=== PATIENT | female | born 1980 | race Caucasian/White ===

== ENCOUNTER 2019-11-16 09:10 | Inpatient (IN) | payer BC, SELFPAY ==
[~2019-11-16] VITALS: Ht 160 cm; Wt 40.5 kg
[~2019-11-16 09:10] MED LIST: AZIT-12 PO
[2019-11-16] MEDS ORDERED: NS 500 ML IV ONE (09:30)
[2019-11-16 09:40] LABS: VENOUS BASE EXCESS 0.3 (-2.0-2.0); VENOUS HCO3 26.5 MEQ/L (23.0-27.0); VENOUS O2 SATURATION 80.8 % (60.0-80.0); VENOUS PARTIAL PRESSURE CO2 48.7 mmHg (38.0-50.0); VENOUS PARTIAL PRESSURE O2 50.7 mmHg (30.0-50.0); VENOUS PH 7.353 UNITS (7.330-7.430); VENOUS STANDARD HCO3 24.4 MEQ/L
[2019-11-16 09:46] LABS: BASO % 0.6 % (0.0-1.0); EOS % 0.8 % (0.0-3.0); HEMATOCRIT 36.1 % (36.0-47.0); HEMOGLOBIN 13.1 g/dl (12.0-15.5); LYMPH # 1.5 10^3/uL (1.5-5.0); LYMPH % 31.6 % (24.0-44.0); MEAN CORPUSCULAR HEMOGLOBIN 32.5 pg (27.0-33.0); MEAN CORPUSCULAR HGB CONC 36.3 g/dl (32.0-36.5); MEAN CORPUSCULAR VOLUME 89.6 fl (80.0-96.0); MONO # 0.3 10^3/uL (0.0-0.8); MONO % 5.7 % (0.0-5.0); NEUTROPHILS # 2.9 10^3/uL (1.5-8.5); NEUTROPHILS % 60.9 % (36.0-66.0); PLATELET COUNT, AUTOMATED 258 10^3/uL (150-450); RED BLOOD COUNT 4.03 10^6/uL (4.00-5.40); WHITE BLOOD COUNT 4.8 10^3/uL (4.0-10.0)
[2019-11-16 09:57] LABS: INR 0.87; PROTHROMBIN TIME 11.5 SECONDS (11.8-14.0)
[2019-11-16 10:21] LABS: FREE T4 1.13 NG/DL (0.76-1.46); MAGNESIUM LEVEL 1.3 MG/DL (1.8-2.4); THYROID STIMULATING HORMONE 1.88 uIU/ML (0.358-3.740)
--- NOTE | 2019-11-16 10:27 | REP ---
Portable chest x-ray: Single view. History: Syncope. No comparison study. Findings: The lungs are symmetrically aerated and clear. The pleural angles are sharp. Heart is not enlarged. Pulmonary vasculature is not increased. EKG monitoring electrodes overlie the chest. No acute bony abnormalities seen. There is some diffuse osteopenia. The patient is extremely thin. Impression: No active cardiopulmonary disease. Diffuse osteopenia. The patient is extremely thin. Electronically Signed by Luis Fernando Murcia MD 11/16/2019 10:19 A
[2019-11-16] MEDS ORDERED: MAG SULF 1GM/100ML (MAG RUN) 1 GM in IV 1 EA IV ONE (10:30)
[2019-11-16 10:35] LABS: INFLUENZA A AMPLIFICATION POSITIVE (NEGATIVE); INFLUENZA B AMPLIFICATION NEGATIVE (NEGATIVE)
[2019-11-16] MEDS ORDERED: NS 250 ML IV ONE (10:45)
[2019-11-16] MEDS ORDERED: B-12100010 PO (11:00)
[2019-11-16] MEDS ORDERED: FLINCHW14 PO (11:00)
[2019-11-16] MEDS ORDERED: AZIT-10 PO (11:00)
[2019-11-16 13:57] VITALS: BP 85/57
[2019-11-16] MEDS ORDERED: KCL 40MEQ in NS 1000ML 1,000 ML IV SCH (14:00)
[2019-11-16] MEDS: KCL 10MEQ/100ML SWI (KRUN) 10 MEQ in IV 1 EA IV SCH ×2 (14:15→15:00)
[2019-11-16 14:51] LABS: CALCIUM LEVEL 8.9 MG/DL (8.5-10.1); CREATININE FOR GFR 2.04 MG/DL (0.55-1.30); MAGNESIUM LEVEL 2.2 MG/DL (1.8-2.4); POTASSIUM SERUM 2.9 MEQ/L (3.5-5.1)
[2019-11-16] MEDS: OSELTAMIVIR PHOSPHATE 30MG CAPSULE PO SCH (15:44)
[2019-11-16] MEDS: POTASSIUM CHLORIDE 10 MEQ SR TABLET PO SCH ×2 (15:45→20:29)
[2019-11-16 15:47] VITALS: BP 97/60
--- NOTE | 2019-11-16 15:59 | HPEPDOC ---
[facility] Medical History & Physical Date of Admission Nov 16, 2019 Date of Service: Nov 16, 2019 Attending Physician: SOWMYA BOOKER DO History and Physical CHIEF COMPLAINT: Nausea, vomiting, and flulike symptoms HISTORY OF PRESENT ILLNESS: Patient is a 39-year-old female with no significant past medical history who presents to the emergency department with complaint of 4 day history of decreased appetite, nausea, vomiting, and flulike symptoms. She states that she recently flew back to [place] from [place] on Thursday. She reports feeling ill on Thursday. She complains of feeling dehydrated, having a decreased appetite, nausea, vomiting. 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 Patient is notably thin and malnourished. She reports significant weight loss recently, however she denies trying to lose any additional weight. She states she has poor eating habits because she is "never hungry" but she denies thoughts of anorexia or bulimia. She states that she does not know her weight and she never checks it, but does state that she has lost weight. She reports that she would be interested in gaining more weight. She states that she is unhappy that she has lost even more rarely recently with current illness. She denies concerns with body image. In the emergency department on [id number] test, patient was found to have a sodium of 111 and therefore patient admitted to the ICU for close monitoring of sodium correction. Patient was found to have several electrolyte abnormalities including hypokalemia and hypomagnesemia in addition to hyponatremia. Of note patient was also found to be influenza A positive. PAST MEDICAL HISTORY: 1. Denies PAST SURGICAL HISTORY: 1. Denies SOCIAL HISTORY: Patient is unmarried and lives at home alone. 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 he plans to move to [place] at the end of the month. In [place] she plans to do [email or web address] work. Patient is a former smoker with a 8 pack year history. She reports smoking approximately half pack per day from age 21- 37. She denies alcohol use or illicit drug use. FAMILY HISTORY: She denies medical problems within her family. Patient has a twin brother who is healthy. ALLERGIES: Please see below. REVIEW OF SYSTEMS: CONSTITUTIONAL: Patient with generalized weakness. HEENT: Denies headache, dizziness. Patient does report nasal congestion and cough. CARDIOVASCULAR: Denies chest pain or palpitations. RESPIRATORY: Denies shortness of breath. GASTROINTESTINAL: Denies abdominal pain. Reports decreased appetite, change taste of food, nausea, vomiting, diarrhea. GENITOURINARY: Does denies dysuria. SKIN: Denies rash. PSYCHIATRIC: Reports she feels that she has lost too much weight. She denies anorexic or bulimic tendencies. Denies suicide ideation HOME MEDICATIONS: Multivitamin, B12 PHYSICAL EXAMINATION: VITAL SIGNS: Please see below. GENERAL: Alert and oriented, in no acute distress, appears thin and malnourished with obvious temporal wasting HENT: Normocephalic, atraumatic EYES: Pupils equal round and reactive to light, no scleral icterus CARDIOVASCULAR: Regular rate and rhythm, no lower extremity edema RESPIRATORY: Clear to auscultation bilaterally ABDOMINAL: Soft, thin, nontender, nondistended, positive bowel sounds EXTREMITIES: Normal range of motion and strength of all 4 extremities NEUROLOGICAL: Alert and oriented 3 without focal deficits noted SKIN: Warm and dry LABORATORY DATA: See below. IMAGING: Chest x-ray independently visualized, in no acute abnormalities identified. Report reviewed, per radiology diffuse osteopenia noted. MICROBIOLOGY: Please see below. ASSESSMENT/PLAN: #Influenza A -Will start Tamiflu 30 mg daily which has been renally adjusted - Isolation precautions - Tylenol when necessary, Zofran for nausea - Supportive care #Acute kidney injury - Secondary to prerenal etiology/dehydration - IV fluid hydration, however will be limited by sodium correction - Avoid nephrotoxic agents - Monitor urine output #Hypovolemic hyponatremia -Likely secondary to poor oral intake, dehydration - Will check serum and urine osmolality, and urine electrolytes to confirm. Will rule out other causes by checking lipid -Will monitor serial sodiums every 6 hours to avoid overcorrection. Anticipate 6-8 mEq of sodium improvement in the first 24 hours - Given severity of hyponatremia, will monitor in the ICU #Hypokalemia, hypomagnesemia - Replete with goal K> 4.0, Mag > 2.0 #Severe protein calorie malnutrition - Likely a result of long-standing history of poor by mouth intake - Will encourage by mouth intake, calorie count - Given obvious long-standing malnutrition, patient at high risk for refeeding syndrome. Monitor electrolytes including phosphorus closely. - Daily weights - Lining Presser consulted Diet: Regular diet with calorie counts. Extensive refeeding syndrome, we'll need to limit caloric intake to allow safe refeeding DVT prophylaxis: Heparin subcutaneous GI prophylaxis: Not indicated at this time O2: Room air L/T/D: None Drips: No fluids pending repeat labs to avoid overcorrection. Fluids are started in will add KCl to avoid hypokalemia CODE STATUS: Full code. Disposition: Monitor in the ICU given severe hyponatremia. Will rehydrate gently to avoid overcorrection of sodium. Aggressive repletion of potassium and magnesium. Billin Vital Signs Vital Signs Date Time Temp Pulse Resp B/P (MAP) Pulse Ox O2 Delivery O2 Flow Rate FiO2 11/16/19 13:44 98.7 11/16/19 13:30 80 16 90/61 (71) 99 Room Air Laboratory Data Labs 24H Laboratory Tests 2 11/16/19 09:30: POC Glucose (Misc Panel) 113H, POC Sodium (Misc Panel) 111*L, POC Potassium (Misc Panel) 3.0L, POC Chloride (Misc Panel) 73L, POC Total CO2 (Misc Panel) 29.0H, POC Blood Urea Nitrogen (Misc Panel 58H, POC Ionized Calcium (Misc Panel) 4.6, POC Creatinine (Misc Panel) 2.8H, POC Hematocrit (Misc Panel) 40.0 11/16/19 09:31: Immature Granulocyte % (Auto) 0.4, Neutrophils (%) (Auto) 60.9, Lymphocytes (%) (Auto) 31.6, Monocytes (%) (Auto) 5.7H, Eosinophils (%) (Auto) 0.8, Basophils (%) (Auto) 0.6, Neutrophils # (Auto) 2.9, Lymphocytes # (Auto) 1.5, Monocytes # (Auto) 0.3, Eosinophils # (Auto) 0.0, Basophils # (Auto) 0.0, Nucleated Red Blood Cells % (auto) 0.0, Prothrombin Time 11.5L, Prothromb Time International Ratio 0.87, Activated Partial Thromboplast Time 34.0, Blood Gas Bicarbonate Standard 24.4, Venous Blood pH 7.353, Venous Blood Partial Pressure CO2 48.7, Venous Blood Partial Pressure O2 50.7H, Venous Blood Total Carbon Dioxide 28.0, Venous Blood HCO3 26.5, Venous Blood Oxygen Saturation 80.8H, Venous Blood Base Excess 0.3, Lactic Acid Level 4.1*H, Magnesium Level 1.3L, Thyroid Stimulating Hormone (TSH) 1.880, Free Thyroxine 1.13 11/16/19 09:32: POC Beta HCG, Quantitative < 5.0 11/16/19 09:33: Bedside Glucose (Misc Panel) 123H 11/16/19 09:48: Influenza Type A (RT-PCR) POSITIVEH, Influenza Type B (RT-PCR) NEGATIVE 11/16/19 10:02: Prealbumin 17.5L 11/16/19 11:31: Urine Random Osmolality 356L 11/16/19 14:04: Anion Gap 9, Glomerular Filtration Rate 29.0L, Osmolality 249L, Lactic Acid Level 1.5, Calcium Level 8.9, Magnesium Level 2.2 CBC/BMP Laboratory Tests 11/16/19 09:31 11/16/19 14:04 Microbiology Microbiology 11/16/19 Blood Culture, Received Pending 11/16/19 Blood Culture, Received Pending Home Medications Scheduled Azithromycin (Azithromycin) 250 Mg Tablet, 250 MG PO DAILY filled 11/12/19 for 5 days Cyanocobalamin (Vitamin B-12) (Vitamin B-12) 1,000 Mcg Capsule, 1,000 MCG PO DAILY Pediatric Multivitamin No.42 (Flintstones) 1 Each Tab.chew, 1 TAB PO DAILY Allergies Coded Allergies: No Known Allergies (Unverified , 03/10/18) A-FIB/CHADSVASC A-FIB History Current/History of A-Fib/PAF?: No Current PO Anticoag Therapy: No Age/Risk Factor Scoring CHADSVASC: CHADSVASC Response (Comments) Value Age Risk Factor Age < 65 years old 0 Gender Risk Factor Female 1 Hx of CHF No 0 Hx of HTN No 0 Hx of Stroke/TIA/or VTE No 0 Hx of Diabetes No 0 Hx of Vascular Disease No 0 Total 1 Treatment Treatment ordered: NONE Reason Anticoagulant not given: Not indicated/[id number] SOWMYA BOOKER DO Nov 16, 2019 15:59
[2019-11-16] MEDS ORDERED: ONDANSETRON 4MG/2ML VIAL (J2405) IV PRN (16:00)
[2019-11-16] MEDS ORDERED: ACETAMINOPHEN TAB 650MG DOSE (2X325MG) PO PRN (16:00)
[2019-11-16] MEDS ORDERED: POTASSIUM CHLORIDE 10 MEQ SR TABLET PO ONE (17:30)
[2019-11-16] MEDS: NEUTRA-PHOS 1.5 GM PACKET PO SCH ×2 (18:20→20:29)
[2019-11-16 18:22] LABS: CALCIUM LEVEL 8.5 MG/DL (8.5-10.1); GLOMERULAR FILTRATION RATE 29.7 (>60); POTASSIUM SERUM 2.9 MEQ/L (3.5-5.1)
[2019-11-16 20:00] VITALS: BP 88/56
[2019-11-16] MEDS ORDERED: FAMOTIDINE 20 MG TAB PO ONE (20:00)
[2019-11-16] MEDS: HEPARIN SOD (PORCINE) 5000 UNITS/ML VIAL (J1644 PER 1000UNITS) SQ SCH (20:28)
[2019-11-16 20:36] LABS: CALCIUM LEVEL 8.3 MG/DL (8.5-10.1); CREATININE FOR GFR 1.85 MG/DL (0.55-1.30); GLOMERULAR FILTRATION RATE 32.5 (>60); MAGNESIUM LEVEL 1.6 MG/DL (1.8-2.4)
[2019-11-16] MEDS ORDERED: POTASSIUM CHLORIDE INJ 40 MEQ in D5W 1,000 ML IV SCH (21:30)
[2019-11-16] MEDS ORDERED: PANTOPRAZOLE 40MG TAB (PROTONIX) PO ONE (22:15)
[2019-11-16] MEDS ORDERED: CALCIUM CARBONATE 500 MG CHEW U/D PO ONE (22:15)
[2019-11-16] MEDS ORDERED: KCL 20MEQ IN D5W 1000ML 1,000 ML IV SCH (22:15)
[2019-11-17] VITALS (8 sets, daily range): BP systolic 73–86; BP diastolic 50–58
[2019-11-17 02:45] LABS: CREATININE FOR GFR 1.48 MG/DL (0.55-1.30); MAGNESIUM LEVEL 1.4 MG/DL (1.8-2.4); POTASSIUM SERUM 4.9 MEQ/L (3.5-5.1)
[2019-11-17] MEDS ORDERED: MAG SULF 1GM/100ML (MAG RUN) 1 GM in IV 1 EA IV ONE (03:30)
[2019-11-17] MEDS ORDERED: D5W 1,000 ML IV SCH (03:30)
--- NOTE | 2019-11-17 05:40 | ECGEPIP ---
[facility] - ED Test Date: 2019-11-16 Pat Name: JAY GOLDSTEIN Department: Room: - Gender: Female Electrical And Electronic Assembler: JNancy : 1980 Requested By: RALPH Herring Order Number: [id number] Reading MD: Aaron Barrera Measurements Intervals Marana Rate: 77 P: 80 NE: 140 QRS: 131 QRSD: 97 T: 69 QT: 376 QTc: 428 Interpretive Statements SINUS RHYTHM POSSIBLE RIGHT ATRIAL ENLARGEMENT MODERATE INTRAVENTRICULAR CONDUCTION DELAY NO PRIORS FOR COMPARISON Electronically Signed on 11-17-2019 5:40:27 EST by Aaron Barrera
[2019-11-17 06:32] LABS: HEMATOCRIT 25.9 % (36.0-47.0); MEAN CORPUSCULAR HEMOGLOBIN 32.7 pg (27.0-33.0); MEAN CORPUSCULAR HGB CONC 35.9 g/dl (32.0-36.5); MEAN CORPUSCULAR VOLUME 91.2 fl (80.0-96.0); PLATELET COUNT, AUTOMATED 184 10^3/uL (150-450); RED BLOOD COUNT 2.84 10^6/uL (4.00-5.40); WHITE BLOOD COUNT 3.5 10^3/uL (4.0-10.0)
[2019-11-17 06:36] LABS: HEMOGLOBIN 9.3 g/dl (12.0-15.5)
[2019-11-17 07:00] LABS: CREATININE FOR GFR 1.47 MG/DL (0.55-1.30); GLOMERULAR FILTRATION RATE 42.3 (>60); MAGNESIUM LEVEL 1.9 MG/DL (1.8-2.4); POTASSIUM SERUM 4.6 MEQ/L (3.5-5.1)
[2019-11-17 07:27] LABS: ALBUMIN 2.1 GM/DL (3.2-5.2); ALT/SGPT 54 U/L (12-78); BLOOD UREA NITROGEN 35 MG/DL (7-18); CALCIUM LEVEL 7.5 MG/DL (8.5-10.1); CARBON DIOXIDE LEVEL 22 MEQ/L (21-32); CHLORIDE LEVEL 91 MEQ/L (98-107); CHOLESTEROL LEVEL 122 MG/DL (< 200); CHOLESTEROL LEVEL 122 MG/DL (<200); CHOLESTEROL RISK RATIO 2.489 (<5); CPK CREATINE PHOSPHOKINASE 96 U/L (26-192); CREATININE FOR GFR 1.45 MG/DL (0.55-1.30); GLUCOSE, FASTING 93 MG/DL (70-100); HDL CHOLESTEROL 49 MG/DL (>40); LDH LACTATE DEHYDROGENASE 151 U/L (84-246); LDL CHOLESTEROL 24 MG/DL (<100); NON-HDL-C 73 MG/DL; PHOSPHORUS LEVEL 1.3 MG/DL (2.5-4.9); POTASSIUM SERUM 4.8 MEQ/L (3.5-5.1); SODIUM LEVEL 121 MEQ/L (136-145); TOTAL PROTEIN 4.2 GM/DL (6.4-8.2); TRIGLYCERIDES LEVEL 243 MG/DL (<150)
[2019-11-17 08:09] LABS: BILIRUBIN,TOTAL < 0.1 MG/DL (0.2-1.0)
--- NOTE | 2019-11-17 08:30 | IPNPDOC ---
Text Note Date of Service The patient was seen on 11/17/19. NOTE I was informed at 02:53 that the patient's sodium level had come back at 123. The patient's initial sodium was 111 at 9:30. This was a point of care value. The next repeat was at 14:04 and was 118. Prior to 02:00 blood work, the patient's sodium was 120 and D5W with 40 MEQ of KCL was started at 50 cc/hr. Patient was unable to tolerate 40 MEQs and this was decreased to 20 MEQs which was well tolerate. After the patient's sodium was found to be 123, the decision was made to urgently consult nephrology. I called Dr. Cheyenne Salas around 03:00 to inform him of the patient. At this time, the patient was doing well and had no complaints. He advised to increase D5W to 100 cc/hr and start doing sodium levels every 4 hours and he would see the patient in the morning. These orders were placed. Since the potassium had recovered to 4.9, potassium was removed from the fluids. Patient's magnesium was also low at this time and she was given a Mag-run. VS,Fishbone, I+O VS, Fishbone, I+O Laboratory Tests 11/16/19 09:31 11/16/19 14:04 11/16/19 17:06 11/16/19 19:57 11/17/19 02:05 11/17/19 06:12 Vital Signs Date Time Temp Pulse Resp B/P (MAP) Pulse Ox O2 Delivery O2 Flow Rate FiO2 11/17/19 04:00 98.6 69 16 84/56 (65) 98 Room Air I&O- Last 24 Hours up to 6 AM 11/17/19 05:59 Intake Total 850 ml Output Total 250 ml Balance 600 ml KRISTY ANGULO DO Nov 17, 2019 08:30
[2019-11-17] MEDS: POTASSIUM CHLORIDE 10 MEQ SR TABLET PO SCH (09:00)
[2019-11-17] MEDS ORDERED: VITAMIN D 1,000 INTERNATIONAL UNITS TABLET PO SCH (09:00)
[2019-11-17] MEDS: FAMOTIDINE 20 MG TAB PO SCH ×2 (09:41→12:34)
[2019-11-17] MEDS: NEUTRA-PHOS 1.5 GM PACKET PO SCH (09:41)
[2019-11-17] MEDS: OSELTAMIVIR PHOSPHATE 30MG CAPSULE PO SCH (09:42)
[2019-11-17] MEDS: HEPARIN SOD (PORCINE) 5000 UNITS/ML VIAL (J1644 PER 1000UNITS) SQ SCH ×2 (09:42→20:01)
[2019-11-17] MEDS ORDERED: PILL CUTTER 1 EACH XX PRN (11:00)
[2019-11-17] MEDS: NS 0.45% 1,000 ML IV SCH (11:08)
[2019-11-17 11:21] LABS: CALCIUM LEVEL 7.3 MG/DL (8.5-10.1); CREATININE FOR GFR 1.51 MG/DL (0.55-1.30); GLOMERULAR FILTRATION RATE 41.1 (>60); POTASSIUM SERUM 5.5 MEQ/L (3.5-5.1)
[2019-11-17 14:50] LABS: CALCIUM LEVEL 7.1 MG/DL (8.5-10.1); CREATININE FOR GFR 1.38 MG/DL (0.55-1.30); GLOMERULAR FILTRATION RATE 45.6 (>60); MAGNESIUM LEVEL 1.3 MG/DL (1.8-2.4); POTASSIUM SERUM 4.5 MEQ/L (3.5-5.1)
[2019-11-17 15:00] LABS: TOTAL 25(OH) VITAMIN D 36.3 NG/ML (30.0-100.0)
[2019-11-17] MEDS ORDERED: SODIUM PHOSPHATE INJ 30 MMOL in D5W 500 ML IV ONE (15:00)
[2019-11-17] MEDS: MAGNESIUM OXIDE 400 MG TAB (MAG-OX) PO SCH ×2 (16:19→20:00)
[2019-11-17] MEDS: MAG SULF 1GM/100ML (MAG RUN) 1 GM in IV 1 EA IV ONE ×2 (16:19→16:25)
--- NOTE | 2019-11-17 18:06 | CR ---
DATE OF CONSULTATION: 11/17/2019 NEPHROLOGY CONSULTATION FOR: Amira Russell MD REASON FOR CONSULTATION: Hyponatremia and over correction. HISTORY OF PRESENT ILLNESS: Ms. Simpson is a 39-year-old female who was admitted to [facility] last evening with diarrhea and weakness. 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 She recently traveled from [place] back to [place] and reports a 4-day history of decreased appetite with nausea, vomiting and flu-like symptoms. She did test positive for influenza A. She reports frequent loose stools, and in the emergency room initially a sodium level was noticed to be 111 on point of care test while her initial chemistry done here showed a sodium level 118. I was called just after 3:00 a.m. to report a sodium level of 123, and at that time, I recommended to start on D5W 100 mL per hour in order to bring her sodium level slightly down due to possible over correction. I have seen her this morning in intensive care unit. PAST MEDICAL AND SURGICAL HISTORY: The patient has no significant past medical or surgical history. SOCIAL HISTORY: She is single and lives at home alone. She denies any alcohol or drug use. She is a former smoker. FAMILY HISTORY: Noncontributory. REVIEW OF SYSTEMS: The patient denies any fever or chills. She has been weak with frequent loose stools and nausea and decreased oral intake with flu-like symptoms. She did test positive for influenza A. Ears, nose and throat are unremarkable. Cardiovascular system: Negative for dyspnea or chest pain. She is somewhat hypotensive. Respiratory system is significant for mild cough but no hemoptysis or pleuritic-type of chest pain. Gastrointestinal (GI) system: As per history of present illness. Psychosocial system: Negative for depression, anxiety. Genitourinary () system is significant for decreased urine output. Hematological and musculoskeletal systems are unremarkable. Skin is negative for rash or ulcers. Neurological system is negative for any seizures or stroke. PHYSICAL EXAMINATION: Temperature 97.9 degrees Fahrenheit, heart rate 72 per minute, and respiratory rate 16 per minute. Blood pressure 75/53 mmHg and oxygen saturation 99% on room air. Head is atraumatic. Neck: Supple and without jugular venous distention (JVD) or thyroid enlargement. Heart sounds regular. Lungs: Clear to auscultation. Abdomen: Soft and nontender and bowel sounds are normal. Extremities: Without any cyanosis or clubbing. Neurologically she is awake, alert and oriented times three. LABORATORY DATA: Her blood gas showed a pH of 7.35, pCO2 48.7, on venous blood gas pO2 was 50.7 and bicarb 24. Her initial chemistry done here at [facility] showed a sodium level 118, potassium 2.9, BUN 44 and creatinine 2.0. Glucose 101 and calcium 8.5. Lactic acid was initially 1.5 and phosphorus 1.9. Her initial CBC showed a hemoglobin of 13.1 and hematocrit 36.1. A repeat CBC this morning showed hemoglobin 9.3 and hematocrit 25.9. Her sodium drawn at 2:05 a.m. was 123 and potassium was up to 4.9. She was given multiple runs of potassium. BUN down to 38 and creatinine 1.48. At 6:00 a.m., sodium 121 and potassium 4.8, chloride 91, CO2 of 22, BUN 35 and creatinine 1.45. Calcium is 7.5 and phosphorus 1.3. Magnesium level 2.0. PROBLEMS: 1. Acute renal failure, most likely dehydration caused by decreased oral intake and diarrhea. She is being hydrated with IV fluid. At this point, she is getting D5W at 100 mL per hour as I recommended this morning, and now I am going to cut it down to 50 mL per hour. She seems to have adequate oral intake, though she is still having some loose stools. Her sodium and renal function will be monitored frequently. 2. Hyponatremia. Sodium level initially was reported at 111, though I am not sure about the accuracy. Initial chemistry showed a sodium level of 118, but she had already received normal saline prior to that. At 2:00 a.m. sodium was 123, so we have changed her IV fluid to D5W in order to decrease the rate of correction. Her sodium level is being rechecked every 4 hours, and we will consider to change her IV fluid later depending upon her sodium readings. I feel that we will switch her to half-normal saline and depending upon her diarrhea and her oral intake, we will adjust the IV fluids further. 3. Hypophosphatemia. She has been given potassium phosphate and potassium level is now up to 4.8 and a most recent one has come back at 5.5. I will stop the potassium phosphate supplement due to risk for hyperkalemia and let her dink some Pepsi or Coke, which is likely to help with her phosphorus level. 4. Diarrhea and nausea. Most likely related to influenza A, and she will continue with IV fluids. She has already been given Tamiflu. Thank you for involving me in the care of Ms. Simpson. I will follow her along with you.
[2019-11-17 18:49] LABS: CREATININE FOR GFR 1.29 MG/DL (0.55-1.30); GLOMERULAR FILTRATION RATE 49.2 (>60); PHOSPHORUS LEVEL 5.8 MG/DL (2.5-4.9); POTASSIUM SERUM 3.4 MEQ/L (3.5-5.1)
[2019-11-17] MEDS ORDERED: KCL 20MEQ in NS 1000ML 1,000 ML IV SCH (19:15)
--- NOTE | 2019-11-17 19:36 | IPNPDOC ---
Date Seen The patient was seen on 11/17/19. Progress Note SUBJECTIVE: Patient seen and examined. Overnight patient sodium was monitored and was noted to be overcorrected. Therefore she was started on D5W at 50 mL/hour but despite this sodium continue to uptrend, therefore nephrology consult was called. This morning patient awake and alert, states she feels much better. She ate some toast and gurrola and said the food tastes much better and that she has an appetite today. She denies runny nose, sore throat cough, chest pain, shortness of breath, abdominal pain, nausea, vomiting. Brief Hospital Course: Patient is a 39-year-old female with no significant past medical history who presents to the emergency department with complaint of 4 day history of decreased appetite, nausea, vomiting, and flulike symptoms. In the emergency department on [id number] test, patient was found to have a sodium of 111 and therefore patient admitted to the ICU for close monitoring of sodium correction. Patient was found to have several electrolyte abnormalities including hypokalemia and hypomagnesemia in addition to hyponatremia. Of note patient was also found to be influenza A positive. PHYSICAL EXAMINATION: VITAL SIGNS: Please see below. GENERAL: Alert and oriented, in no acute distress, appears thin and malnourished with obvious temporal wasting HENT: Normocephalic, atraumatic EYES: Pupils equal round and reactive to light, no scleral icterus CARDIOVASCULAR: Regular rate and rhythm, no lower extremity edema RESPIRATORY: Clear to auscultation bilaterally ABDOMINAL: Soft, thin, nontender, nondistended, positive bowel sounds EXTREMITIES: Normal range of motion and strength of all 4 extremities NEUROLOGICAL: Alert and oriented 3 without focal deficits noted SKIN: Warm and dry LABORATORY DATA/IMAGING/MICROBIOLOGY: Please see below. ASSESSMENT/PLAN: #Influenza A - Continue Tamiflu 30 mg daily which has been renally adjusted - Isolation precautions - Tylenol when necessary, Zofran for nausea - Supportive care #Acute kidney injury, improving - Secondary to prerenal etiology/dehydration - IV fluid hydration, however will be limited by sodium correction - Avoid nephrotoxic agents - Monitor urine output - Nephrology consulted #Hypovolemic hyponatremia, improving -Likely secondary to poor oral intake, dehydration - now on D5 W due to overcorrection - Initial [id number]-[id number] sodium= 111 maintain apparently have some inaccuracy however serum sodium peaked at 123 overnight which supersedes goal of 6-8 mEq increase in the 24-hour period - Nephrology managing fluids to avoid over correction. Discussed with nephrology #Hypophosphatemia, hypomagnesemia - Replete with goal K> 4.0, Mag > 2.0, Phos > 2.5 #Severe protein calorie malnutrition - Likely a result of long-standing history of poor by mouth intake - Will encourage by mouth intake, calorie count - Given obvious long-standing malnutrition, patient at high risk for refeeding syndrome. Monitor electrolytes including phosphorus closely. - Daily weights - Hvac Lead consulted Resolved Hospital Problems Hypokalemia Diet: Regular diet with calorie counts. If evidence of refeeding syndrome, we'll need to limit caloric intake to allow safe refeeding DVT prophylaxis: Heparin subcutaneous GI prophylaxis: Not indicated at this time O2: Room air L/T/D: None Drips: No fluids pending repeat labs to avoid overcorrection. Fluids are started in will add KCl to avoid hypokalemia CODE STATUS: Full code. Disposition: Patient with improvement of sodium however not fully corrected. Patient without any seizures or altered mentation or life-threatening signs associated with hyponatremia, therefore we'll transfer to telemetry. Billin VS, I&O, 24H, [facility] Vital Signs/I&O Vital Signs Date Time Temp Pulse Resp B/P (MAP) Pulse Ox O2 Delivery O2 Flow Rate FiO2 11/17/19 18:16 97.0 75 18 86/55 (65) 99 Room Air I&O- Last 24 Hours up to 6 AM 11/17/19 05:59 Intake Total 850 ml Output Total 250 ml Balance 600 ml Laboratory Data 24H LABS Laboratory Tests 2 11/16/19 19:57: Anion Gap 9, Glomerular Filtration Rate 32.5L, Calcium Level 8.3L, Magnesium Level 1.6L 11/17/19 02:05: Anion Gap 9, Glomerular Filtration Rate 42.0L, Calcium Level 7.0#L, Magnesium Level 1.4L 11/17/19 06:12: Anion Gap 8, Glomerular Filtration Rate 43.0L, Calcium Level 7.5L, Magnesium Level 2.0, Nucleated Red Blood Cells % (auto) 0.0, Phosphorus Level 1.3#L, Total Bilirubin < 0.1L, Aspartate Amino Transf (AST/SGOT) 56H, Alanine Aminotransferase (ALT/SGPT) 54, Alkaline Phosphatase 49, Lactate Dehydrogenase 151, Total Creatine Kinase 96, Total Protein 4.2L, Albumin 2.1L, Albumin/Globulin Ratio 1.00, Triglycerides Level 243H, Total Cholesterol 122, C holesterol Level 122, LDL Cholesterol 24, Non-HDL Cholesterol (LDL + VLDL) 73, Total HDL Cholesterol 49, Cholesterol/HDL Ratio 2.489 11/17/19 10:05: Anion Gap 11, Glomerular Filtration Rate 41.1L, Calcium Level 7.3L 11/17/19 13:59: Anion Gap 6L, Glomerular Filtration Rate 45.6L, Lactic Acid Level 1.5, Calcium Level 7.1L, Phosphorus Level 2.0#L, Magnesium Level 1.3L, 25-Hydroxy Vitamin D Total 36.3 11/17/19 18:04: Anion Gap 9, Glomerular Filtration Rate 49.2L, Calcium Level 7.0L, Phosphorus Level 5.8#H CBC/BMP Laboratory Tests 11/16/19 19:57 11/17/19 02:05 11/17/19 06:12 11/17/19 10:05 11/17/19 13:59 11/17/19 18:04 Microbiology Microbiology 11/16/19 Blood Culture - Preliminary, Resulted No growth after 24 hours . All specim... 11/16/19 Blood Culture - Preliminary, Resulted No growth after 24 hours . All specim... SOWMYA BOOKER DO Nov 17, 2019 19:36
[2019-11-17 23:45] LABS: ALBUMIN 2.3 GM/DL (3.2-5.2); CALCIUM LEVEL 5.9 MG/DL (8.5-10.1); CREATININE FOR GFR 1.39 MG/DL (0.55-1.30); GLOMERULAR FILTRATION RATE 45.2 (>60); PHOSPHORUS LEVEL 5.2 MG/DL (2.5-4.9); POTASSIUM SERUM 3.6 MEQ/L (3.5-5.1)
[2019-11-18] VITALS: BP 80/50
[2019-11-18] MEDS ORDERED: CALCIUM GLUCONATE 1,000 MG in D5W MINI-BAG PLUS 100 ML IV ONE ×4 (00:15→21:15)
[2019-11-18] MEDS ORDERED: CALCIUM CARBONATE 500 MG CHEW U/D PO ONE (00:15)
[2019-11-18] MEDS: NS 0.45% 1,000 ML IV SCH (03:10)
[2019-11-18 03:38] LABS: CALCIUM LEVEL 6.2 MG/DL (8.5-10.1); CREATININE FOR GFR 1.3 MG/DL (0.55-1.30); GLOMERULAR FILTRATION RATE 48.8 (>60); MAGNESIUM LEVEL 1.6 MG/DL (1.8-2.4); PHOSPHORUS LEVEL 3.7 MG/DL (2.5-4.9); POTASSIUM SERUM 3.4 MEQ/L (3.5-5.1)
[2019-11-18 04:00] VITALS: BP 78/50
[2019-11-18] MEDS ORDERED: MAG SULF 1GM/100ML (MAG RUN) 1 GM in IV 1 EA IV ONE (04:30)
[2019-11-18] MEDS ORDERED: KCL 20MEQ IN 0.45NS 1000ML 1,000 ML IV SCH (04:30)
[2019-11-18 08:00] VITALS: BP 83/52
[2019-11-18 08:20] LABS: CALCIUM LEVEL 6.9 MG/DL (8.5-10.1); CREATININE FOR GFR 1.22 MG/DL (0.55-1.30); GLOMERULAR FILTRATION RATE 52.5 (>60); MAGNESIUM LEVEL 2.4 MG/DL (1.8-2.4); PHOSPHORUS LEVEL 2.9 MG/DL (2.5-4.9)
[2019-11-18] MEDS: FAMOTIDINE 20 MG TAB PO SCH (08:59)
[2019-11-18] MEDS: MAGNESIUM OXIDE 400 MG TAB (MAG-OX) PO SCH ×3 (08:59→21:18)
[2019-11-18] MEDS: OSELTAMIVIR PHOSPHATE 30MG CAPSULE PO SCH (09:00)
[2019-11-18] MEDS: HEPARIN SOD (PORCINE) 5000 UNITS/ML VIAL (J1644 PER 1000UNITS) SQ SCH ×2 (09:00→21:18)
--- NOTE | 2019-11-18 10:23 | IPNPDOC ---
Text Note Date of Service The patient was seen on 11/18/19. NOTE SUBJECTIVE: Feels good this morning. Has some cough with wet sound, no wheezing or SOB. No abdominal pain , no further diarrhea. No nausea or vomiting. PHYSICAL EXAMINATION: VITAL SIGNS: Please see below. GENERAL: Alert and oriented, in no acute distress, appears thin and malnourished with obvious temporal wasting HENT: Normocephalic, atraumatic EYES: Pupils equal round and reactive to light, no scleral icterus CARDIOVASCULAR: Regular rate and rhythm, no lower extremity edema RESPIRATORY: Clear to auscultation bilaterally ABDOMINAL: Soft, thin, nontender, nondistended, positive bowel sounds EXTREMITIES: Normal range of motion and strength of all 4 extremities, wasting of small muscles of hand. NEUROLOGICAL: Alert and oriented 3 without focal deficits noted SKIN: Warm and dry LABORATORY DATA/IMAGING/MICROBIOLOGY: Please see below. ASSESSMENT/PLAN: Patient is a 39-year-old female with no significant past medical history who presents to the emergency department with complaint of 4 day history of decreased appetite, nausea, vomiting, and flulike symptoms. In the emergency department on [id number]-[id number] test, patient was found to have a sodium of 111 and therefore patient admitted to the ICU for close monitoring of sodium correction. Patient was found to have several electrolyte abnormalities including hypokalemia and hypomagnesemia in addition to hyponatremia. Of note patient was also found to be influenza A positive. #Influenza A - Continue Tamiflu 30 mg daily which has been renally adjusted - Isolation precautions - Tylenol when necessary, Zofran for nausea - Supportive care #Acute kidney injury, improving - Secondary to prerenal etiology/dehydration - IV fluid hydration currently on 0.5 NS with K - Avoid nephrotoxic agents - Monitor urine output - Appreciate Nephrology input #Hypovolemic hyponatremia, improving -Likely secondary to poor oral intake, diarrhea, dehydration - Initial neocs-wg-zwwg sodium= 111 - Nephrology managing fluids to avoid over correction. Discussed with nephrology #Hypophosphatemia, hypomagnesemia, - Replete with goal K> 4.0, Mag > 2.0, Phos > 2.5 #Severe protein calorie malnutrition - Likely a result of long-standing history of poor by mouth intake - Will encourage by mouth intake, calorie count - Given obvious long-standing malnutrition, patient at high risk for refeeding syndrome. Monitor electrolytes including phosphorus closely. - Daily weights - Varnishing Machine Operator consulted #OSteoporosis - Vit D level OK, started on supplementation DVT prophylaxis: Heparin subcutaneous CODE STATUS: Full code. VS,Fishbone, I+O VS, Fishbone, I+O Laboratory Tests 11/17/19 13:59 11/17/19 18:04 11/17/19 22:24 11/18/19 02:53 11/18/19 07:38 Vital Signs Date Time Temp Pulse Resp B/P (MAP) Pulse Ox O2 Delivery O2 Flow Rate FiO2 11/18/19 08:00 96.8 74 15 83/52 (62) 99 Room Air I&O- Last 24 Hours up to 6 AM 11/18/19 06:00 Intake Total 2917 ml Output Total 600 ml Balance 2317 ml STANLEY BRUMFIELD MD Nov 18, 2019 10:23
[2019-11-18 10:24] LABS: CALCIUM LEVEL 6.6 MG/DL (8.5-10.1); CREATININE FOR GFR 1.33 MG/DL (0.55-1.30); GLOMERULAR FILTRATION RATE 47.5 (>60); PHOSPHORUS LEVEL 2.6 MG/DL (2.5-4.9); POTASSIUM SERUM 3.8 MEQ/L (3.5-5.1)
[2019-11-18 12:00] VITALS: BP 87/51
[2019-11-18] MEDS ORDERED: KCL 20MEQ in NS 1000ML 1,000 ML IV SCH (12:00)
[2019-11-18] MEDS ORDERED: SLF 3 ML SYR IV PRN (12:30)
--- NOTE | 2019-11-18 12:31 | IPN ---
DATE OF VISIT: 11/18/2019 Ms. Simpson is seen this morning on her bedside. She was admitted with severe diarrhea, acute renal failure and various electrolyte abnormalities. She is feeling better now and reports eating much better. She still has diarrhea with one loose stool last night. Denies any fever or chills. Her intravenous (IV) fluid has been adjusted multiple times and other electrolytes, including magnesium, phosphorus and potassium has been replaced. On physical exam, temperature 96.8 degrees Fahrenheit, heart rate 74 per minute and respiratory rate 16 per minute. Blood pressure 83/52 mmHg and oxygen saturation 99% on room air. Intake and output are probably not accurate. Her physical exam is essentially unchanged. Her head is atraumatic, neck supple and without jugular venous distention (JVD) or thyroid enlargement. Heart sounds regular and lungs clear to auscultation. Abdomen soft and nontender, and bowel sounds normal. Extremities without any cyanosis or clubbing. This morning at about 3 a.m. her sodium was 127 and potassium 3.4. At 7 a.m., sodium again 127 and potassium 4.0. BUN down to 20 and creatinine 1.22. Glucose 61 and calcium 6.9. Yesterday, her calcium was down to 5.9 and she has received two doses of calcium supplement intravenously. Magnesium is 2.4. Most recent chemistry this morning at 9:49 a.m. showed sodium 123, potassium 3.8, CO2 19, BUN also 19 and creatinine 1.33. Glucose 64, calcium 6.6 and phosphorus 2.6. PROBLEMS: 1. Acute renal failure related to dehydration caused by diarrhea and poor oral intake. Kidney function has improved significantly since admission but no significant change since yesterday. We will continue with gentle IV hydration. 2. Hyponatremia. Sodium level remains fluctuating due to oral intake and IV fluids. I am going to switch her back to normal saline at 50 mL/h and we will try to bring her sodium level up to about 130 today. Her electrolytes will be checked again later this afternoon. 3. Hypokalemia. Potassium level has corrected and we will continue with some potassium supplement in the IV fluid. 4. Hypomagnesemia. she did require magnesium intravenously and magnesium level has now improved. 5. Influenza and diarrhea. Her symptoms are improving, however still has some loose stools here and there. Will continue with IV fluid hydration until she is all good.
[2019-11-18] MEDS: SLF 3 ML SYR IV SCH ×2 (14:00→21:21)
[2019-11-18 16:00] VITALS: BP 82/51
[2019-11-18] MEDS: CALCIUM CARBONATE 500 MG CHEW U/D PO PRN ×2 (17:01→21:23)
[2019-11-18 17:06] LABS: ALBUMIN 2.1 GM/DL (3.2-5.2); CALCIUM LEVEL 6.3 MG/DL (8.5-10.1); CREATININE FOR GFR 1.33 MG/DL (0.55-1.30); GLOMERULAR FILTRATION RATE 47.5 (>60); PHOSPHORUS LEVEL 2.4 MG/DL (2.5-4.9); POTASSIUM SERUM 3.8 MEQ/L (3.5-5.1)
[2019-11-18 20:00] VITALS: BP 84/60
[2019-11-18 21:06] LABS: ALBUMIN 2.1 GM/DL (3.2-5.2); CALCIUM LEVEL 5.9 MG/DL (8.5-10.1); CREATININE FOR GFR 1.47 MG/DL (0.55-1.30); GLOMERULAR FILTRATION RATE 42.3 (>60); MAGNESIUM LEVEL 1.7 MG/DL (1.8-2.4); PHOSPHORUS LEVEL 2.5 MG/DL (2.5-4.9); POTASSIUM SERUM 3.8 MEQ/L (3.5-5.1)
[2019-11-18] MEDS: LR 1,000 ML IV SCH (22:30)
[2019-11-19] VITALS: BP 76/54
[2019-11-19 04:00] VITALS: BP 76/56
[2019-11-19] MEDS: SLF 3 ML SYR IV SCH ×3 (05:23→21:21)
[2019-11-19 05:37] LABS: HEMATOCRIT 24.3 % (36.0-47.0); HEMOGLOBIN 8.5 g/dl (12.0-15.5); MEAN CORPUSCULAR HEMOGLOBIN 32.6 pg (27.0-33.0); MEAN CORPUSCULAR VOLUME 93.1 fl (80.0-96.0); PLATELET COUNT, AUTOMATED 161 10^3/uL (150-450); RED BLOOD COUNT 2.61 10^6/uL (4.00-5.40); WHITE BLOOD COUNT 4.3 10^3/uL (4.0-10.0)
[2019-11-19 05:59] LABS: ALBUMIN 1.9 GM/DL (3.2-5.2); CALCIUM LEVEL 6.6 MG/DL (8.5-10.1); CREATININE FOR GFR 1.32 MG/DL (0.55-1.30); GLOMERULAR FILTRATION RATE 47.9 (>60); PHOSPHORUS LEVEL 2.3 MG/DL (2.5-4.9); POTASSIUM SERUM 3.8 MEQ/L (3.5-5.1)
--- NOTE | 2019-11-19 07:04 | REPVR ---
PROCEDURE INFORMATION: Exam: US Retroperitoneal Limited, Kidneys Exam date and time: 11/19/2019 6:36 AM Age: 39 years old Clinical indication: Abnormal findings; Abnormal lab test; Abnormal kidney function lab tests; Additional info: Arf/ckd TECHNIQUE: Imaging protocol: Real-time ultrasound of the retroperitoneum with image documentation. Examination was focused on the kidneys. COMPARISON: No relevant prior studies available. FINDINGS: Pleural space: A left pleural effusion is noted. Right kidney: The right kidney is normal in echogenicity. The kidney is relatively small measuring 8.8 x 3.7 x 3.5 cm. No hydronephrosis, masses, or stones are identified. Left kidney: The left kidney is normal in echogenicity. The kidney is relatively small, measuring 8.8 x 4.1 x 4.4 cm. No hydronephrosis, masses or stones are identified. Bladder: The bladder was mostly collapsed. Assessment is limited but the bladder appears grossly unremarkable. IMPRESSION: 1. Relatively small kidneys bilaterally, but the echogenicity appears normal. No hydronephrosis. 2. Left pleural effusion noted. Electronically signed by: Shea Manuel On 11/19/2019 07:04:28 AM
[2019-11-19 07:46] VITALS: BP 71/50
[2019-11-19] MEDS: MAGNESIUM OXIDE 400 MG TAB (MAG-OX) PO SCH ×3 (08:05→20:26)
[2019-11-19] MEDS: OSELTAMIVIR PHOSPHATE 30MG CAPSULE PO SCH (08:05)
[2019-11-19] MEDS: FAMOTIDINE 20 MG TAB PO SCH (08:05)
[2019-11-19] MEDS: HEPARIN SOD (PORCINE) 5000 UNITS/ML VIAL (J1644 PER 1000UNITS) SQ SCH ×2 (08:06→20:31)
[2019-11-19 08:52] LABS: MAGNESIUM LEVEL 1.7 MG/DL (1.8-2.4)
--- NOTE | 2019-11-19 09:46 | IPNPDOC ---
Text Note Date of Service The patient was seen on 11/19/19. NOTE SUBJECTIVE: Feels good this morning. Has some cough no wheezing or SOB. No ab dominal pain , no further diarrhea. No nausea or vomiting. Complains of swelling in the thighs. PHYSICAL EXAMINATION: VITAL SIGNS: Please see below. GENERAL: Alert and oriented, in no acute distress, appears thin and malnourished with obvious temporal wasting HENT: Normocephalic, atraumatic EYES: Pupils equal round and reactive to light, no scleral icterus CARDIOVASCULAR: Regular rate and rhythm, no lower extremity edema RESPIRATORY: Clear to auscultation bilaterally ABDOMINAL: Soft, thin, nontender, nondistended, positive bowel sounds EXTREMITIES: Normal range of motion and strength of all 4 extremities, wasting of small muscles of hand. Mild edema in the thighs inner aspect. NEUROLOGICAL: Alert and oriented 3 without focal deficits noted SKIN: Warm and dry LABORATORY DATA/IMAGING/MICROBIOLOGY: Please see below. ASSESSMENT/PLAN: Patient is a 39-year-old female with no significant past medical history who presents to the emergency department with complaint of 4 day history of decreased appetite, nausea, vomiting, and flulike symptoms. In the emergency department on [id number] test, patient was found to have a sodium of 111 and therefore patient admitted to the ICU for close monitoring of sodium correction. Patient was found to have several electrolyte abnormalities inc luding hypokalemia and hypomagnesemia in addition to hyponatremia. Of note patient was also found to be influenza A positive. Influenza A Continue Tamiflu 30 mg daily which has been renally adjusted Isolation precautions Tylenol when necessary, Zofran for nausea Supportive care Acute kidney injury Vs CKD No change in creatinine with IVF This is probably CKD 3 rather than KASSDIY Renal US shows bilateral small kidneys 8 cm and 8.8 cm Continue IVF as per nephrology. Hypovolemic hyponatremia, improving Likely secondary to poor oral intake, diarrhea, dehydration Initial ccxkg-nk-rodo sodium= 111 Nephrology managing fluids to avoid over correction. Discussed with nephrology Hypophosphatemia, hypomagnesemia, Replete with goal K> 4.0, Mag > 2.0, Phos > 2.5 on oral magnesium Hypocalcemia present even after correction for albumin getting IV replacements. Anemia HH at 8.5, normocytic and normochormic will check iron panel, vit b12 and folate levels. Severe protein calorie malnutrition Likely a result of long-standing history of poor by mouth intake Will encourage by mouth intake, calorie count Given obvious long-standing malnutrition, patient at high risk for refeeding syndrome. Monitor electrolytes including phosphorus closely. Daily weights Replenishment Merchandising Associate consulted OSteoporosis Vit D level OK, started on supplementation DVT prophylaxis: Heparin subcutaneous CODE STATUS: Full code. VS,Fishbone, I+O VS, Fishbone, I+O Laboratory Tests 11/18/19 09:49 11/18/19 16:25 11/18/19 20:33 11/19/19 05:12 Vital Signs Date Time Temp Pulse Resp B/P (MAP) Pulse Ox O2 Delivery O2 Flow Rate FiO2 11/19/19 07:46 97.1 65 18 71/50 (57) 96 Room Air I&O- Last 24 Hours up to 6 AM 11/19/19 06:00 Intake Total 1120 ml Output Total 450 ml Balance 670 ml STANLEY BRUMFIELD MD Nov 19, 2019 09:46
[2019-11-19 11:31] VITALS: BP 77/50
[2019-11-19] MEDS: LR 1,000 ML IV SCH (11:38)
[2019-11-19] MEDS ORDERED: DOCUSATE SODIUM 100 MG CAP PO PRN (12:00)
[2019-11-19] MEDS: SIMETHICONE 80 MG CHEW TAB PO PRN ×2 (12:37→20:31)
[2019-11-19 12:39] LABS: CALCIUM LEVEL 6.5 MG/DL (8.5-10.1); CREATININE FOR GFR 1.19 MG/DL (0.55-1.30); POTASSIUM SERUM 4.1 MEQ/L (3.5-5.1)
[2019-11-19 12:42] LABS: FERRITIN 35 NG/ML (8-252); IRON (FE) 53 UG/DL (50-170); PERCENT SATURATION 20.7 % (13.2-45.0); TOTAL IRON BINDING CAPACITY 256 UG/DL (250-450)
[2019-11-19] MEDS: CALCIUM CARBONATE 500 MG CHEW U/D PO PRN ×2 (14:19→20:31)
[2019-11-19 14:45] LABS: APPEARANCE, URINE CLEAR (CLEAR); BACTERIA, URINE AUTO NEGATIVE (NEGATIVE); BILIRUBIN, URINE AUTO NEGATIVE (NEGATIVE); BLOOD, URINE BLOOD NEGATIVE (NEGATIVE); COLOR, URINE YELLOW (YELLOW); GLUCOSE, URINE (UA) AUTO NEGATIVE (NEGATIVE); KETONE, URINE AUTO TRACE mg/dL (NEGATIVE); LEUKOCYTE ESTERASE, URINE AUTO NEGATIVE (NEGATIVE); NITRITE, URINE AUTO NEGATIVE (NEGATIVE); PROTEIN, URINE AUTO NEGATIVE (NEGATIVE); RBC, URINE AUTO 1 /HPF (0-3); SQUAMOUS EPITHELIAL CELL UR AU 0 /HPF (0-6); UROBILINOGEN, URINE AUTO 0.2 mg/dL (0.0-2.0); WBC, URINE AUTO 7 /HPF (0-3)
[2019-11-19 15:38] VITALS: BP 80/58
[2019-11-19 20:00] VITALS: BP 78/56
[2019-11-19 20:19] LABS: CALCIUM LEVEL 6.5 MG/DL (8.5-10.1); CREATININE FOR GFR 1.37 MG/DL (0.55-1.30); GLOMERULAR FILTRATION RATE 45.9 (>60); MAGNESIUM LEVEL 1.4 MG/DL (1.8-2.4); POTASSIUM SERUM 3.7 MEQ/L (3.5-5.1)
[2019-11-20] VITALS: BP 76/50
[2019-11-20 04:00] VITALS: BP 70/50
[2019-11-20 04:43] LABS: CALCIUM LEVEL 6.7 MG/DL (8.5-10.1); CREATININE FOR GFR 1.22 MG/DL (0.55-1.30); GLOMERULAR FILTRATION RATE 52.5 (>60); MAGNESIUM LEVEL 1.3 MG/DL (1.8-2.4); PHOSPHORUS LEVEL 1.8 MG/DL (2.5-4.9); POTASSIUM SERUM 3.9 MEQ/L (3.5-5.1)
[2019-11-20] MEDS ORDERED: MAG SULF 1GM/100ML (MAG RUN) 1 GM in IV 1 EA IV ONE (05:00)
[2019-11-20] MEDS: SLF 3 ML SYR IV SCH ×3 (05:38→21:03)
[2019-11-20] MEDS: LR 1,000 ML IV SCH (06:46)
[2019-11-20] MEDS ORDERED: SODIUM PHOSPHATE INJ 30 MMOL in D5W 500 ML IV ONE (07:00)
[2019-11-20 07:56] VITALS: BP 78/50
[2019-11-20 07:59] LABS: ALBUMIN 1.7 GM/DL (3.2-5.2)
[2019-11-20] MEDS: HEPARIN SOD (PORCINE) 5000 UNITS/ML VIAL (J1644 PER 1000UNITS) SQ SCH ×2 (09:11→21:02)
[2019-11-20] MEDS: OSELTAMIVIR PHOSPHATE 30MG CAPSULE PO SCH (09:12)
[2019-11-20] MEDS: MAGNESIUM OXIDE 400 MG TAB (MAG-OX) PO SCH ×3 (09:12→21:01)
[2019-11-20] MEDS: NEUTRA-PHOS 1.5 GM PACKET PO SCH ×3 (09:12→18:07)
[2019-11-20] MEDS: FAMOTIDINE 20 MG TAB PO SCH (09:12)
--- NOTE | 2019-11-20 09:41 | IPN ---
DATE: 11/19/2019 Ms. Simpson is seen this morning on her bedside. She is sitting in the bed and reports feeling uncomfortable due to swelling on her thighs and arms. She denies any dyspnea or chest pain. She reports no more loose stools and still has decreased urine output. She has been on IV fluid due to dehydration, acute renal failure and various electrolyte abnormalities. PHYSICAL EXAMINATION: Temperature 97 degrees Fahrenheit, heart rate 70 per minute and respiratory rate 18 per minute. Blood pressure 77/50 mmHg and oxygen saturation 94% on room air. Head is atraumatic. Neck supple and JVD not elevated. She has no oral thrush or ulcers. Heart sounds are regular and lungs sound clear to auscultation. Abdomen is soft and nontender and bowel sounds are normal. Extremities without any cyanosis or clubbing. Though she is trying to tell me that she feels swollen, but I do not feel any pitting edema. She has minimal, if any, swelling on her thigh area. Neurologically she is awake, alert and oriented times three. Today's labs show WBC count 4.3, hemoglobin 8.5 and hematocrit 24.3. Sodium 129, potassium 4.1, BUN 16 and creatinine 1.32. Calcium is 6.6, phosphorus 2.3 and magnesium 1.7. PROBLEMS: 1. Acute renal failure. Her kidney function has improved partially however, creatinine has not improved to what would be her normal baseline. Unfortunately, we do not know her prior baseline at this time. She remains on IV fluid due to electrolyte abnormalities and also, I want to see if her kidney function would improve any further. I am cutting down the IV fluid to 50 mL per hour as she reports some edema and adequate oral intake now. 2. Hyponatremia. Sodium level is improving nicely and slowly. She is now on Ringer's Lactate IV fluid at 50 mL per hour while she was on 70 mL per hour previously. We will consider stopping her IV fluid in next 24 hours. Her electrolytes are being repeated frequently. 3. Hypokalemia. Her potassium level has corrected and stabilized and does not need any further supplement. 4. Hypocalcemia. The patient had recurrent hypocalcemia and has not repeated multiple doses of intravenous calcium and she also remains on oral calcium supplement. 5. Hypomagnesemia and hypophosphatemia. These are nutritional and likely to improve as now she claims to have improved appetite. 6. Anemia. The patient also has significant anemia and will require further workup with possible GI evaluation. Her iron studies have just come back and seem to be relatively normal. 7. Protein calorie malnutrition. Most likely this is a chronic issue as she is very underweight and probably chronically malnourished. She will need to increase her protein intake. DISPOSITION: I have explained to the patient that she is not quite ready for discharge as yet. Once we stop her IV fluids and if her electrolytes remain stable, then she can probably be considered for discharge.
[2019-11-20 11:36] VITALS: BP 78/51
[2019-11-20 11:47] LABS: HEMATOCRIT 25.6 % (36.0-47.0); HEMOGLOBIN 8.9 g/dl (12.0-15.5); MEAN CORPUSCULAR HEMOGLOBIN 33.1 pg (27.0-33.0); MEAN CORPUSCULAR HGB CONC 34.8 g/dl (32.0-36.5); MEAN CORPUSCULAR VOLUME 95.2 fl (80.0-96.0); PLATELET COUNT, AUTOMATED 197 10^3/uL (150-450); RED BLOOD COUNT 2.69 10^6/uL (4.00-5.40); WHITE BLOOD COUNT 4.4 10^3/uL (4.0-10.0)
[2019-11-20] MEDS: CALCIUM CARBONATE 500 MG CHEW U/D PO PRN ×3 (11:49→21:01)
[2019-11-20] MEDS: SIMETHICONE 80 MG CHEW TAB PO PRN ×2 (11:49→21:01)
[2019-11-20 12:20] LABS: CALCIUM LEVEL 7.3 MG/DL (8.5-10.1); CREATININE FOR GFR 1.26 MG/DL (0.55-1.30); GLOMERULAR FILTRATION RATE 50.6 (>60); POTASSIUM SERUM 4.1 MEQ/L (3.5-5.1)
[2019-11-20 12:23] LABS: MAGNESIUM LEVEL 1.9 MG/DL (1.8-2.4); PHOSPHORUS LEVEL 2.7 MG/DL (2.5-4.9)
[2019-11-20 15:46] VITALS: BP 98/56
[2019-11-20 20:00] VITALS: BP 82/54
[2019-11-20 20:26] LABS: CALCIUM LEVEL 7.4 MG/DL (8.5-10.1); CREATININE FOR GFR 1.35 MG/DL (0.55-1.30); GLOMERULAR FILTRATION RATE 46.7 (>60); POTASSIUM SERUM 3.9 MEQ/L (3.5-5.1)
[2019-11-21] VITALS: BP 72/50
[2019-11-21 04:00] VITALS: BP 80/47
[2019-11-21 04:48] LABS: CALCIUM LEVEL 6.6 MG/DL (8.5-10.1); CREATININE FOR GFR 1.17 MG/DL (0.55-1.30); GLOMERULAR FILTRATION RATE 55.1 (>60); MAGNESIUM LEVEL 1.7 MG/DL (1.8-2.4)
[2019-11-21] MEDS: SLF 3 ML SYR IV SCH (05:09)
[2019-11-21] MEDS ORDERED: MAGNESIUM OXIDE 400 MG TAB (MAG-OX) PO ONE (07:00)
[2019-11-21 08:00] VITALS: BP 81/52
[2019-11-21] MEDS ORDERED: CALCIUM/VITAMIN D 500 MG TAB PO SCH (09:00)
[2019-11-21] MEDS ORDERED: K-PHOS NEUTRAL 250MG TABLET (SOD.PHOSPHATE/POT.PHOSPHATE) PO SCH (09:00)
[2019-11-21] MEDS ORDERED: FERROUS GLUCONATE 324 MG TAB PO SCH (09:00)
[2019-11-21] MEDS: HEPARIN SOD (PORCINE) 5000 UNITS/ML VIAL (J1644 PER 1000UNITS) SQ SCH ×2 (09:00→09:04)
[2019-11-21] MEDS: MAGNESIUM OXIDE 400 MG TAB (MAG-OX) PO SCH (09:03)
[2019-11-21] MEDS: NEUTRA-PHOS 1.5 GM PACKET PO SCH ×2 (09:03→11:38)
[2019-11-21] MEDS: FAMOTIDINE 20 MG TAB PO SCH (09:04)
[2019-11-21 09:48] LABS: VITAMIN B12 LEVEL > 2000 PG/ML (247-911)
[2019-11-21 10:00] LABS: FOLATE > 24.0 NG/ML (>5.4)
[2019-11-21 10:19] LABS: ALBUMIN 1.8 GM/DL (3.2-5.2)
[2019-11-21 10:35] LABS: PTH INTACT 113.3 PG/ML (18.5-88.0)
[2019-11-21] MEDS ORDERED: NEUTPW PO (10:42)
[2019-11-21] MEDS ORDERED: MAG400TA PO (10:42)
[2019-11-21] MEDS ORDERED: FAMO20TA PO (10:42)
[2019-11-21] MEDS ORDERED: CALCD50TA PO (10:42)
--- NOTE | 2019-11-21 14:14 | IPN ---
DATE: 11/20/2019 Mrs. Simpson is seen this morning on her bedside. She is feeling well and wants to go home. I had already stopped her IV fluid this morning. She denies any vomiting or diarrhea at present. She has no nausea or vomiting and reports that her oral intake has been good. PHYSICAL EXAMINATION Temperature 97.3 degrees Fahrenheit, heart rate 70 per minute and respiratory rate 18 per minute. Blood pressure 78/50 mmHg and oxygen saturation 95% on room air. Head is atraumatic. Neck is supple and without jugular venous distention (JVD) or thyroid enlargement. Heart sounds are regular and lungs have been clear to auscultation. Abdomen is soft and nontender and bowel sounds are normal. Extremities are without any cyanosis or clubbing. Neurologically, she is awake, alert and oriented times three. Today's labs show WBC count 4.4, hemoglobin 8.9 and hematocrit 25.6. This morning her sodium was 131, potassium 3.9, CO2 25, BUN 14 and creatinine 1.22. A repeat sodium is now 129, potassium 4.1, BUN 12 and creatinine 1.26. Glucose 66 and calcium 7.3. This morning her magnesium was 1.3 and phosphorus 1.8. PROBLEMS: 1. Acute renal failure superimposed on chronic kidney disease. She has bilaterally small kidneys and creatinine has improved at best down to 1.22 with GFR 52.5. I feel that she has underlying chronic kidney disease and her acute renal failure was caused by dehydration, which has now improved. The patient feels that she has swelling on her hands and thighs, and I have already stopped her IV fluid. She has no more diarrhea and her oral intake is adequate to prevent any further dehydration at present. 2. Hyponatremia. Her sodium level was up to 131 when IV fluid was stopped morning and now her sodium is down to 129. I have explained to her the risk for worsening hyponatremia and she needs to eat normal food. We do not know what her baseline sodium level is as she did not have any labs done here prior to this hospitalization. It is quite possible that she has chronic hyponatremia. I have advised the patient to stay in hospital for next 24 hours as we want to monitor his electrolytes without any IV fluid and see how she does. 3. Hypomagnesemia. Her magnesium level was 1.3 and she has already received one dose of magnesium sulfate 1 gram this morning. Repeat magnesium level is now 1.9. 4. Hypophosphatemia. She has recurrent hypophosphatemia, which is most likely nutritional. I feel that she has chronic dietary issues as her blood sugar usually runs in 60s in the morning. She has received sodium phosphate and phosphorus level is now 2.7. 5. Protein calorie malnutrition. This is most likely a chronic dietary issue that needs to be addressed probably as an outpatient. I feel that she probably has chronic electrolyte deficiencies and protein insufficiency.
--- NOTE | 2019-11-22 00:03 | IPN ---
DATE: 11/21/2019 SUBJECTIVE: The patient was seen and examined at the bedside today morning. She is afebrile, hemodynamically stable. She reports that shortness of breath is significantly better. She still has some electrolyte abnormalities, but they are getting better today. Sodium has improved to 133 today, morning. The patient does not want to stay in the hospital, she wants to get discharged, and she is agreeable to follow up with nephrology as outpatient. OBJECTIVE: Vital signs: Temperature is 98 degrees Fahrenheit, blood pressure 81/52, pulse is 77, respiratory rate of 18, saturating 100% on room air. Intake and output: Urine output recorded is 300 mL since overnight. Weight in the bed scale is 40.5 kg. PHYSICAL EXAMINATION: General: The patient is awake, alert, oriented times three, weak and cachectic, laying in bed. Head and Neck Exam: Extraocular muscles intact. Pupils equally round and reactive to light. Mucous membranes are moist. Neck is supple. There is no jugular venous distention (JVD). Cardiovascular: S1, S2, regular rate. No edema of the bilateral lower extremities. Respiratory: Chest is clear to auscultation bilaterally. Bilateral equal air entry. No rales or rhonchi. Abdomen: Soft, positive bowel sounds. Nontender. No organomegaly. Musculoskeletal: No clubbing or cyanosis. Pulses are 2+. Central nervous system (FIELDWORK COORDINATOR): No focal deficit. Power is 5/5 in all extremities. LAB REVIEW: CBC showed a WBC of 4.4, hemoglobin 8.9, platelets are 197. BMP showed sodium 133, potassium 4, chloride 103, bicarbonate 25, BUN 13, creatinine is 1.1, glucose was 63, calcium 6.6, phosphorus is 2, magnesium 1.7, albumin is 1.8, PTH 113, cortisol in morning is 20.1. CURRENT INPATIENT MEDICATIONS: The patient's medications were all reviewed by myself. She was getting Tums 1 gram every 4 hours as needed for heartburn. I have stopped the Tums because of persistent hypophosphatemia. I have changed the patient to Os-Ricardo Plus D 500 mg twice a day. She is taking Colace as needed, Pepcid 10 mg by mouth daily, heparin subcu, magnesium 800 mg by mouth three times a day, Zofran as needed, Tamiflu, she has received five doses so far. She is getting Neutra-Phos two packets by mouth with meals. She was also getting K-Phos tablets, which I have stopped now. She is on simethicone 80 mg by mouth every 6 hours as needed for pain. ASSESSMENT/PLAN: 1. Acute kidney injury. Patient's renal function continues to improve. Creatinine has improved to 1.1 now. She will need to follow up with the nephrology service as an outpatient. 2. Hyponatremia. Sodium level has considerably improved to 133 now. No need of salt tablets at this time. Volume status is optimal. 3. Hypocalcemia. The patient was getting very high dose of calcium, Tums tablets, which is making her phosphorus level worse. I have changed the calcium dose to 500 mg by mouth twice a day. 4. Hypophosphatemia. It is secondary to use of high-dose Tums. Continue current dose of Neutra-Phos packets, and as mentioned above, calcium dose has been decreased. 5. Hypomagnesemia. Continue current dose of magnesium oxide three times a day. 6. Anemia. The patient's iron levels were checked, and she has borderline iron stores with a transferrin saturation of 20.7% and ferritin is 35. The patient is being started on iron tablets. 7. Protein-calorie malnutrition. The patient has very low albumin and prealbumin levels. The patient denies any history of an eating disorder. The patient is underweight; she has a body mass index (BMI) of 15.8. 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 The patient was advised to increase her protein intake. 8. Disposition. The patient is going to be discharged. She will need to follow up with nephrology within 1 week after discharge from the hospital.
== END 2019-11-21 12:13 | disposition home or self-care (01) | DRG 422 ==
LOC: M ED 09:10 → M ED INP 11:54 → ENRESERVTM 13:30 → ENRESERVDT 13:30 → M ICU 14:01 → M PCU 11-17 18:10
PROVIDERS: ADMIT Internal Medicine; ATTEND Internal Medicine Nephrology
DX: E87.1 Hypo-osmolality and hyponatremia (principal); E43 Unspecified severe protein-calorie malnutrition; N17.9 Acute kidney failure, unspecified; N18.3 Chronic kidney disease, stage 3 (moderate); E83.51 Hypocalcemia; E83.42 Hypomagnesemia; J10.2 Influenza due to other identified influenza virus with gastrointestinal manifestations; E83.39 Other disorders of phosphorus metabolism; E86.0 Dehydration; E87.6 Hypokalemia; M81.0 Age-related osteoporosis without current pathological fracture; D64.9 Anemia, unspecified; Z68.1 Body mass index [BMI] 19.9 or less, adult; Z87.891 Personal history of nicotine dependence

== ENCOUNTER 2024-03-25 10:11 | Emergency (ER) | payer BC, OTHER ==
[~2024-03-25] VITALS: Ht 160 cm; Wt 39.0 kg
[~2024-03-25 10:11] MED LIST changes: +AZIT-10 PO; +B-12100010 PO; +CALCD50TA PO; +FAMO20TA PO; +FLINCHW14 PO; +MAGN400T35 PO; +NEUTPW PO
[2024-03-25] MEDS ORDERED: MIRT1TAB16 PO (10:25)
[2024-03-25] MEDS ORDERED: RENV2TAB PO (10:25)
[2024-03-25] MEDS ORDERED: ZYRTTAB8 PO (10:25)
[2024-03-25] MEDS ORDERED: MIDO2.5T PO (10:25)
[2024-03-25] MEDS ORDERED: PROZ20CA11 PO (10:25)
[2024-03-25] MEDS ORDERED: BIOT1CAP2 PO (10:25)
[2024-03-25] MEDS: NS 1,000 ML IV SCH (11:30)
[2024-03-25 11:33] LABS: BASO # 0.1 10^3/uL (0.0-0.2); BASO % 0.6 % (0.0-1.0); EOS # 0.2 10^3/uL (0.0-0.5); EOS % 1.9 % (0.0-3.0); HEMATOCRIT 38.6 % (36.0-47.0); HEMOGLOBIN 12.8 g/dl (12.0-15.5); LYMPH # 1.7 10^3/uL (1.5-5.0); LYMPH % 18.4 % (24.0-44.0); MEAN CORPUSCULAR HEMOGLOBIN 32.2 pg (27.0-33.0); MEAN CORPUSCULAR HGB CONC 33.2 g/dl (32.0-36.5); MEAN CORPUSCULAR VOLUME 97.2 fl (80.0-96.0); MONO # 0.8 10^3/uL (0.0-0.8); NEUTROPHILS # 6.6 10^3/uL (1.5-8.5); NEUTROPHILS % 70.5 % (36.0-66.0); PLATELET COUNT, AUTOMATED 419 10^3/uL (150-450); RED BLOOD COUNT 3.97 10^6/uL (4.00-5.40); WHITE BLOOD COUNT 9.4 10^3/uL (4.0-10.0)
[2024-03-25 12:05] LABS: LIPASE 71 U/L (12-53)
[2024-03-25 12:18] LABS: ALBUMIN 3.4 G/DL (3.2-5.2); ALKALINE PHOSPHATASE 90 U/L (46-116); ALT/SGPT 41 U/L (7.0-40); AST/SGOT 35 U/L (<34); BILIRUBIN,DIRECT < 0.1 MG/DL (<0.4); BILIRUBIN,TOTAL < 0.2 MG/DL (0.3-1.2); BLOOD UREA NITROGEN 39 MG/DL (9-23); CALCIUM LEVEL 9.5 MG/DL (8.5-10.1); CARBON DIOXIDE LEVEL 26 MMOL/L (20-31); CHLORIDE LEVEL 87 MMOL/L (98-107); CREATININE FOR GFR 9.93 MG/DL (0.55-1.30); GLOMERULAR FILTRATION RATE 4.6 (>58); GLUCOSE, FASTING 79 MG/DL (60-100); POTASSIUM SERUM 4.9 MMOL/L (3.5-5.1); SODIUM LEVEL 125 MMOL/L (136-145); TOTAL PROTEIN 6.2 G/DL (5.7-8.2)
[2024-03-25 13:38] VITALS: BP 90/57; TEMP 97.4; O2SAT 100
[2024-03-25] MEDS: cefTRIAXone SOD 1 GM in D5W MINI-BAG PLUS 50 ML IV ONE (13:55)
[2024-03-25] MEDS ORDERED: CEPH500C PO (14:40)
[2024-03-31] MEDS ORDERED: DOXY-323 PO (07:42)
== END 2024-03-25 14:51 | disposition home or self-care (01) ==
LOC: M ED 10:11
DX: N10 Acute pyelonephritis (principal); N18.6 End stage renal disease; Z79.899 Other long term (current) drug therapy
CPT/HCPCS: 80048; 80076; 81001; 83690; 85025; 87088; 87186; 96360; 96361; 96365; 99284; J0696

== ENCOUNTER 2024-03-26 15:59 | Emergency (ER) | payer OTHER ==
[~2024-03-26] VITALS: Ht 160 cm; Wt 40.9 kg
[~2024-03-26 15:59] MED LIST changes: +BIOT1CAP2 PO; +CEPH500C PO; +MIDO2.5T PO; +MIRT1TAB16 PO; +PROZ20CA11 PO; +RENV2TAB PO; +ZYRTTAB8 PO
[2024-03-26 16:01] VITALS: TEMP 97.9
[2024-03-26 17:15] VITALS: O2SAT 100
[2024-03-26 17:52] VITALS: BP 93/60
== END 2024-03-26 17:59 | disposition home or self-care (01) ==
LOC: M ED 15:59
DX: N18.6 End stage renal disease (principal); Z79.899 Other long term (current) drug therapy; Z79.2 Long term (current) use of antibiotics